=== PATIENT | male | born 1945 | race Two or more races ===

== ENCOUNTER → 2017-12-15 | Outpatient (CLI) | payer OTHER | END | disposition home or self-care (01) | LOC: RAD 501 10:02 | DX: M25.561 Pain in right knee (principal); M25.562 Pain in left knee ==

== ENCOUNTER 2025-03-01 06:00 | Day surgery (SDC) | payer OTHER ==
[2025-02-09 11:05] VITALS: BP 150/75
[2025-02-09 11:08] LABS: BASO % 0.4 % (0.1-1.2); EOS # 0.08 (0.04-0.54); EOS % 1.7 % (0.7-7.0); LYMPH # 1.00 (1.18-3.74); LYMPH % 21.0 % (19.3-53.1); MEAN PLATELET VOLUME 9.90 fl (9.4-12.4); MONO # 0.39 (0.24-0.82); MONO % 8.2 % (4.7-12.5); NEUT # 3.25 (1.56-6.13); NEUT % 68.3 % (34.0-71.1); RED CELL DISTRIBUTION WIDTH 14.1 % (11.6-14.4)
[2025-02-09 11:43] LABS: ALT/SGPT 39.0 U/L (12-78); AST/SGOT 26.0 U/L (15-37); BILIRUBIN TOTAL 0.81 mg/dL (0.3-1.2); BUN CREA RATIO 22.0 (7.0-25.0); CREATININE SERUM 0.86 mg/dL (0.70-1.30); GFR 85.56; GLOBULINA 3.0 G/DL (2.4-3.5); GLUCOSE FASTING 92.0 mg/dL (65-100); OSMOLALITY SERUM 289.0 MOSM/KG (275-295)
[2025-02-09 11:49] LABS: INR 1.02
[~2025-03-01] VITALS: Ht 165.1 cm; Wt 72.1 kg
[~2025-03-01 06:00] MED LIST: CIALIS5 MG PO; TOPROL XL25 M1 PO
[2025-03-01] MEDS ORDERED: GLUCAGON 1 MG VIAL ONE (09:10)
[2025-03-01] MEDS ORDERED: IOVERSOL 320 MG/ML - 50 ML VIAL IV ONE (09:10)
== END 2025-03-01 16:25 | disposition home or self-care (01) ==
LOC: CIR.AMB 06:00
PROVIDERS: ATTEND Internal Medicine
DX: K85.90 Acute pancreatitis without necrosis or infection, unspecified (principal); R93.2 Abnormal findings on diagnostic imaging of liver and biliary tract
CPT/HCPCS: 43274; C1748